=== PATIENT | male | born 1955 | race Asian ===

== ENCOUNTER 2022-04-04 18:01 | Emergency (ER) | payer MEDICAID ==
[~2022-04-04] VITALS: Ht 185.4 cm; Wt 79.5 kg
[2022-04-04 20:10] LABS: COVID AG,FIA SOURCE NASOPHARYNGEAL
[2022-04-04 20:14] LABS: BASOPHILS % (AUTO) 0.1 % (0.0-2.0); EOSINOPHILS % (AUTO) 0 % (1.0-6.0); HEMATOCRIT 26.6 % (41-53); HEMOGLOBIN 7.4 g/dL (13.5-17.5); LYMPHOCYTES # (AUTO) 1.9 K/uL (1.0-4.8); LYMPHOCYTES % (AUTO) 19.5 % (22.0-44.0); MEAN CORPUSCULAR HEMOGLOBIN 15.7 pg (26.0-34.0); MEAN CORPUSCULAR HGB CONC 27.9 G/dL (31.0-37.0); MEAN CORPUSCULAR VOLUME 56 fL (80-100); MONOCYTES # (AUTO) 0.8 K/uL (0.1-1.0); MONOCYTES % (AUTO) 8.3 % (2.0-9.0); NEUTROPHILS # (AUTO) 7.1 K/uL (1.8-7.7); NEUTROPHILS % (AUTO) 72.1 % (40.0-70.0); PLATELET COUNT (AUTO) 448 K/uL (150-450); RED BLOOD CELL COUNT(AUTO) 4.72 MIL/uL (4.50-5.90); RED CELL DISTRIBUTION WIDTH 18.8 % (11.5-14.5)
[2022-04-04 20:19] LABS: ANION GAP 12 mmol/L (8-16); CALCIUM, TOTAL 8.9 mg/dL (8.8-10.5); CARBON DIOXIDE 22 mmol/L (22-29); CHLORIDE 101 mmol/L (98-107); CREATININE 1.12 mg/dL (0.60-1.30); GLOMERULAR FILTR. RATE CALC > 60 mL/min (>60); GLUCOSE,RANDOM 129 mg/dL (70-110); POTASSIUM 3.7 mmol/L (3.5-5.1); SODIUM SERUM 135 mmol/L (136-145); UREA NITROGEN, BLOOD 15 mg/dL (7-18)
[2022-04-04 20:24] LABS: ALANINE AMINOTRANSFERASE 22 U/L (12-78); ALBUMIN 4.1 g/dL (3.4-5.0); ALKALINE PHOSPHATASE 88 U/L (46-116); ASPARTATE AMINOTRANSFERASE 17 U/L (15-37); BILIRUBIN,TOTAL 0.4 mg/dL (0.1-1.0); LIPASE 229 U/L (73-393); TOTAL PROTEIN, SERUM 9.2 g/dL (6.4-8.2)
[2022-04-04 20:34] LABS: INFLUENZA TYPE A NEGATIVE FOR TYPE A (NEGATIVE); INFLUENZA TYPE B NEGATIVE FOR TYPE B (NEGATIVE)
[2022-04-04] MEDS ORDERED: LIDOCAINE 2% VISCOUS 15 ML SOLUTION UDCUP PO ONE (20:45)
[2022-04-04] MEDS ORDERED: MAG HYDROX/AL HYDROX/SIMETH ES 30 ML SUSPENSION UDCUP PO ONE (20:45)
[2022-04-04] MEDS ORDERED: OMEP20 PO (21:12)
[2022-04-04] MEDS: OMEPRAZOLE 20 MG CAPSULE PO ONE (21:20)
[2022-04-04 21:30] VITALS: BP 119/74
== END 2022-04-04 23:08 | disposition home or self-care (01) ==
LOC: EMS 18:01
DX: R10.13 Epigastric pain (principal); D64.9 Anemia, unspecified; Z20.822 Contact with and (suspected) exposure to COVID-19
CPT/HCPCS: 71045; 80053; 83690; 84484; 85025; 87804; 93005; 99285; 36415-L1; 36415-TC

== ENCOUNTER 2022-04-21 15:33 | Emergency (ER) | payer MEDICAID ==
[~2022-04-21] VITALS: Ht 185.4 cm; Wt 73.2 kg
[~2022-04-21 15:33] MED LIST: AMOX1TAB16 PO; DOCU-385 PO; HYDR4 PO; OMEP20 PO
[2022-04-21] MEDS ORDERED: HYDROGEN PEROXIDE 118 ML SOLUTION TP ONE (16:15)
[2022-04-21 16:29] VITALS: BP 123/53
== END 2022-04-21 16:35 | disposition home or self-care (01) ==
LOC: EMS 15:34
DX: Z48.01 Encounter for change or removal of surgical wound dressing (principal); Z90.49 Acquired absence of other specified parts of digestive tract
CPT/HCPCS: 99282; Z7502; Z7610

== ENCOUNTER 2022-06-18 19:19 | Emergency (ER) | payer MEDICAID ==
[~2022-06-18] VITALS: Ht 180.3 cm; Wt 69.1 kg
[2022-06-18 23:09] LABS: BASOPHILS % (AUTO) 0.5 % (0.0-2.0); HEMATOCRIT 43.8 % (41-53); HEMOGLOBIN 14.3 g/dL (13.5-17.5); LYMPHOCYTES # (AUTO) 1.6 K/uL (1.0-4.8); LYMPHOCYTES % (AUTO) 44.7 % (22.0-44.0); MEAN CORPUSCULAR HEMOGLOBIN 27.2 pg (26.0-34.0); MEAN CORPUSCULAR HGB CONC 32.6 G/dL (31.0-37.0); MEAN CORPUSCULAR VOLUME 84 fL (80-100); MONOCYTES # (AUTO) 0.4 K/uL (0.1-1.0); MONOCYTES % (AUTO) 11.2 % (2.0-9.0); NEUTROPHILS # (AUTO) 1.4 K/uL (1.8-7.7); NEUTROPHILS % (AUTO) 39.6 % (40.0-70.0); PLATELET COUNT (AUTO) 183 K/uL (150-450); RED BLOOD CELL COUNT(AUTO) 5.24 MIL/uL (4.50-5.90); RED CELL DISTRIBUTION WIDTH 19.4 % (11.5-14.5)
[2022-06-18 23:24] LABS: ANION GAP 9 mmol/L (8-16); CALCIUM, TOTAL 8.7 mg/dL (8.8-10.5); CARBON DIOXIDE 26 mmol/L (22-29); CHLORIDE 105 mmol/L (98-107); CREATININE 1.07 mg/dL (0.60-1.30); GLUCOSE,RANDOM 137 mg/dL (70-110); POTASSIUM 3.6 mmol/L (3.5-5.1); SODIUM SERUM 140 mmol/L (136-145); UREA NITROGEN, BLOOD 17 mg/dL (7-18)
[2022-06-18 23:28] LABS: GLOMERULAR FILTR. RATE CALC > 60 mL/min (>60)
[2022-06-18 23:30] LABS: ALANINE AMINOTRANSFERASE 21 U/L (12-78); ALBUMIN 3.6 g/dL (3.4-5.0); ALKALINE PHOSPHATASE 79 U/L (46-116); ASPARTATE AMINOTRANSFERASE 19 U/L (15-37); BILIRUBIN,TOTAL 0.2 mg/dL (0.1-1.0); TOTAL PROTEIN, SERUM 7.5 g/dL (6.4-8.2)
[2022-06-19] MEDS ORDERED: SODIUM CHLORIDE 0.9% 1,000 ML IV ONE (01:00)
[2022-06-19] MEDS ORDERED: MECL-160 PO (02:59)
[2022-06-19 03:00] VITALS: BP 145/90
== END 2022-06-19 03:14 | disposition home or self-care (01) ==
LOC: EMS 19:22
DX: R42 Dizziness and giddiness (principal)
CPT/HCPCS: 99285; 80053; 85025; 36415; 93005; 70450; J7030

== ENCOUNTER 2022-09-01 06:07 | Day surgery (SDC) | payer OTHER ==
[~2022-09-01] VITALS: Ht 182.9 cm; Wt 75.0 kg
[~2022-09-01 06:07] MED LIST changes: -AMOX1TAB16 PO; -DOCU-385 PO; -HYDR4 PO; +MECL-160 PO; -OMEP20 PO; +SODIUM CHLORIDE 0.9% 1,000 ML IV ONE; +SODIUM CHLORIDE 0.9% 1,000 ML ONE
[2022-09-01 06:55] LABS: COVID AG,FIA SOURCE NASAL SWAB
[2022-09-01] MEDS ORDERED: PROPOFOL 1% 20 ML VIAL IVP ONE (12:00)
[2022-09-01] MEDS ORDERED: LIDOCAINE/PF 2% 5 ML VIAL IM ONE (12:00)
== END 2022-09-01 08:50 | disposition home or self-care (01) ==
LOC: SURGERY 06:07
PROVIDERS: ATTEND Surgery
DX: Z08 Encounter for follow-up examination after completed treatment for malignant neoplasm (principal); K63.5 Polyp of colon; J45.909 Unspecified asthma, uncomplicated; Z85.048 Personal history of other malignant neoplasm of rectum, rectosigmoid junction, and anus; Z20.822 Contact with and (suspected) exposure to COVID-19; Z79.899 Other long term (current) drug therapy; Z98.890 Other specified postprocedural states
CPT/HCPCS: 45380; 87426; C9803; C1769; J2704; J3490; J7030

== ENCOUNTER 2022-12-02 18:22 | Emergency (ER) | payer OTHER ==
[~2022-12-02] VITALS: Ht 185.4 cm; Wt 75.0 kg
[~2022-12-02 18:22] MED LIST changes: -SODIUM CHLORIDE 0.9% 1,000 ML IV ONE; -SODIUM CHLORIDE 0.9% 1,000 ML ONE
[2022-12-02 21:00] VITALS: BP 132/85
[2022-12-02 21:46] LABS: BASOPHILS % (AUTO) 0.9 % (0.0-2.0); EOSINOPHILS % (AUTO) 0.3 % (1.0-6.0); HEMATOCRIT 48.7 % (41-53); HEMOGLOBIN 15.8 g/dL (13.5-17.5); LYMPHOCYTES # (AUTO) 1.8 K/uL (1.0-4.8); LYMPHOCYTES % (AUTO) 13.3 % (22.0-44.0); MEAN CORPUSCULAR HEMOGLOBIN 28.1 pg (26.0-34.0); MEAN CORPUSCULAR HGB CONC 32.3 G/dL (31.0-37.0); MEAN CORPUSCULAR VOLUME 87 fL (80-100); MONOCYTES # (AUTO) 1.5 K/uL (0.1-1.0); MONOCYTES % (AUTO) 10.8 % (2.0-9.0); NEUTROPHILS # (AUTO) 10.3 K/uL (1.8-7.7); NEUTROPHILS % (AUTO) 74.7 % (40.0-70.0); PLATELET COUNT (AUTO) 286 K/uL (150-450); RED BLOOD CELL COUNT(AUTO) 5.61 MIL/uL (4.50-5.90); RED CELL DISTRIBUTION WIDTH 13.9 % (11.5-14.5)
[2022-12-02 21:53] LABS: CALCIUM, TOTAL 9.2 mg/dL (8.8-10.5); CREATININE 1.28 mg/dL (0.60-1.30); POTASSIUM 3.7 mmol/L (3.5-5.1)
[2022-12-02 22:09] LABS: COVID AG,FIA SOURCE NASAL SWAB
[2022-12-02 22:19] LABS: ALBUMIN 3.9 g/dL (3.4-5.0); BILIRUBIN,TOTAL 0.4 mg/dL (0.1-1.0)
== END 2022-12-02 23:00 | disposition home or self-care (01) ==
LOC: EMS 18:24
DX: J20.9 Acute bronchitis, unspecified (principal); A49.02 Methicillin resistant Staphylococcus aureus infection, unspecified site; J18.9 Pneumonia, unspecified organism; J43.9 Emphysema, unspecified; Z90.49 Acquired absence of other specified parts of digestive tract; Z20.822 Contact with and (suspected) exposure to COVID-19
CPT/HCPCS: 71045; 80053; 82550; 83880; 84484; 85025; 93005; 99285; 36415-L1; 36415-TC

== ENCOUNTER 2023-03-29 05:16 | Inpatient (IN) | payer OTHER ==
[~2023-03-29] VITALS: Ht 185.4 cm; Wt 79.8 kg
[2023-03-29] MEDS ORDERED: BARIUM SULFATE 0.1% SUSPENSION 450 ML BOTTLE PO ONE (06:30)
[2023-03-29] MEDS ORDERED: MORPHINE SULFATE 4 MG/ML SYRINGE IVP ONE ×2 (06:30→08:00)
[2023-03-29] MEDS ORDERED: ONDANSETRON HCL 4 MG/2 ML VIAL IVP ONE (06:30)
[2023-03-29 06:45] LABS: BASOPHILS % (AUTO) 0.5 % (0.0-2.0); EOSINOPHILS % (AUTO) 1.4 % (1.0-6.0); HEMATOCRIT 46.4 % (41-53); HEMOGLOBIN 15.5 g/dL (13.5-17.5); LYMPHOCYTES # (AUTO) 2.8 K/uL (1.0-4.8); LYMPHOCYTES % (AUTO) 30.5 % (22.0-44.0); MEAN CORPUSCULAR HEMOGLOBIN 29.4 pg (26.0-34.0); MEAN CORPUSCULAR HGB CONC 33.5 G/dL (31.0-37.0); MEAN CORPUSCULAR VOLUME 88 fL (80-100); MONOCYTES # (AUTO) 0.5 K/uL (0.1-1.0); MONOCYTES % (AUTO) 5.9 % (2.0-9.0); NEUTROPHILS # (AUTO) 5.7 K/uL (1.8-7.7); NEUTROPHILS % (AUTO) 61.7 % (40.0-70.0); PLATELET COUNT (AUTO) 197 K/uL (150-450); RED BLOOD CELL COUNT(AUTO) 5.27 MIL/uL (4.50-5.90); RED CELL DISTRIBUTION WIDTH 14.1 % (11.5-14.5)
[2023-03-29 06:53] LABS: CALCIUM, TOTAL 8.3 mg/dL (8.8-10.5); CREATININE 1.21 mg/dL (0.60-1.30); POTASSIUM 3.4 mmol/L (3.5-5.1)
[2023-03-29] MEDS ORDERED: IOHEXOL 350 MG/ML 100 ML VIAL ONE (06:56)
[2023-03-29] MEDS ORDERED: SODIUM CHLORIDE 0.9% 100 ML ONE (06:56)
[2023-03-29 07:02] LABS: ALBUMIN 3.7 g/dL (3.4-5.0); BILIRUBIN,TOTAL 0.3 mg/dL (0.1-1.0); TOTAL PROTEIN, SERUM 7.8 g/dL (6.4-8.2)
[2023-03-29] MEDS ORDERED: KETOROLAC TROMETHAMINE 30 MG/ML VIAL IVP ONE (09:15)
[2023-03-29 09:20] LABS: APPEARANCE,URINE CLEAR (CLEAR); BILIRUBIN,URINE NEGATIVE (NEGATIVE); GLUCOSE, URINE (UA) 300-500 mg/dL (NEGATIVE); KETONES,URINE NEGATIVE (NEGATIVE); LEUKOCYTE ESTERASE ,URINE NEGATIVE (NEGATIVE); NITRATE,URINE NEGATIVE (NEGATIVE); OCCULT BLOOD,URINE NEGATIVE (NEGATIVE); PROTEIN,URINE NEGATIVE (NEGATIVE); UROBILINOGEN,URINE <=1.0 mg/dL (<=1.0)
[2023-03-29 09:46] LABS: BACTERIA,URINE None Seen /HPF (None Seen); RBC,URINE None Seen /HPF (0-2); SQUAMOUS EPITHELIAL CELL,UR Few /LPF (None Seen); WBC,URINE None Seen /HPF (0-5)
[2023-03-29] MEDS ORDERED: HYDROmorphone HCL 2 MG/ML SYRINGE IVP ONE (10:15)
[2023-03-29] MEDS ORDERED: ONDANSETRON HCL 4 MG/2 ML VIAL IVP PRN (10:30)
[2023-03-29] MEDS ORDERED: IPRATROPIUM BROMIDE 0.5 MG/2.5 ML NEB SOLUTION NEB PRN (10:30)
[2023-03-29] MEDS ORDERED: 0.9% SODIUM CHLORIDE 10 ML SYRINGE IVP PRN (10:30)
[2023-03-29] MEDS ORDERED: ALBUTEROL SULFATE 2.5 MG/0.5 ML NEB SOLUTION NEB PRN (10:30)
[2023-03-29] MEDS ORDERED: ACETAMINOPHEN 325 MG TABLET PO PRN (10:30)
[2023-03-29] MEDS: SODIUM CHLORIDE 0.9% 1,000 ML IV SCH ×2 (10:54→23:57)
[2023-03-29 12:31] VITALS: BP 126/79
[2023-03-29] MEDS: HYDROmorphone HCL 2 MG/ML SYRINGE IVP PRN ×3 (14:25→22:07)
[2023-03-29] MEDS: HEPARIN SODIUM,PORCINE 5,000 UNITS/ML VIAL SQ SCH ×2 (16:00→23:58)
[2023-03-29 16:31] VITALS: BP 130/80
[2023-03-29] MEDS ORDERED: KETOROLAC TROMETHAMINE 15 MG/ML VIAL IVP ONE (18:00)
[2023-03-29 20:05] VITALS: BP 148/99
[2023-03-30] MEDS ORDERED: HYDROmorphone HCL 2 MG/ML SYRINGE IVP ONE (01:00)
[2023-03-30 05:22] VITALS: BP 121/73
[2023-03-30] MEDS: HYDROmorphone HCL 2 MG/ML SYRINGE IVP PRN ×3 (05:30→17:01)
[2023-03-30 08:00] VITALS: BP 102/58
[2023-03-30] MEDS: HEPARIN SODIUM,PORCINE 5,000 UNITS/ML VIAL SQ SCH ×2 (08:00→16:00)
[2023-03-30] MEDS: PANTOPRAZOLE SODIUM 40 MG/VIAL IVP SCH (08:40)
[2023-03-30] MEDS ORDERED: DIATRIZOATE MEGLU/SOD 660/100 MG/ML 120 ML BOTTLE ONE ×2 (10:00→16:44)
[2023-03-30] MEDS: SODIUM CHLORIDE 0.9% 1,000 ML IV SCH (13:07)
[2023-03-30 15:00] VITALS: BP 106/76
[2023-03-30 19:50] VITALS: BP 136/71
[2023-03-30] MEDS ORDERED: RINGERS SOLUTION,LACTATED 1,000 ML IV SCH (21:45)
[2023-03-30 22:00] VITALS: BP 98/55
[2023-03-30] MEDS ORDERED: RINGERS SOLUTION,LACTATED 1,000 ML IV ONE (22:00)
[2023-03-30] MEDS ORDERED: SODIUM CHLORIDE 0.9% 1,000 ML ONE ×2 (22:01→22:11)
[2023-03-30] MEDS ORDERED: POTASSIUM CHL 10 MEQ/WATER 50 ML IV ONE (22:15)
[2023-03-30 22:35] LABS: BASOPHILS % (AUTO) 0.1 % (0.0-2.0); EOSINOPHILS % (AUTO) 0 % (1.0-6.0); HEMATOCRIT 39.6 % (41-53); HEMOGLOBIN 12.3 g/dL (13.5-17.5); LYMPHOCYTES # (AUTO) 1.6 K/uL (1.0-4.8); LYMPHOCYTES % (AUTO) 10.8 % (22.0-44.0); MEAN CORPUSCULAR HEMOGLOBIN 28.7 pg (26.0-34.0); MEAN CORPUSCULAR VOLUME 93 fL (80-100); MONOCYTES # (AUTO) 2.6 K/uL (0.1-1.0); MONOCYTES % (AUTO) 17.6 % (2.0-9.0); NEUTROPHILS # (AUTO) 10.7 K/uL (1.8-7.7); NEUTROPHILS % (AUTO) 71.5 % (40.0-70.0); PLATELET COUNT (AUTO) 151 K/uL (150-450); RED BLOOD CELL COUNT(AUTO) 4.28 MIL/uL (4.50-5.90); RED CELL DISTRIBUTION WIDTH 14.8 % (11.5-14.5)
[2023-03-30 22:57] LABS: ALBUMIN 1.5 g/dL (3.4-5.0); BILIRUBIN,TOTAL 0.3 mg/dL (0.1-1.0); CREATININE 2.73 mg/dL (0.60-1.30); MAGNESIUM 1.7 mg/dL (1.80-2.40); PHOSPHORUS 6.1 mg/dL (2.5-4.9); TOTAL PROTEIN, SERUM 3.6 g/dL (6.4-8.2)
[2023-03-30] MEDS ORDERED: PIPERACILLIN/TAZO 3.375 GM/D5W 50 ML IV SCH (23:00)
[2023-03-30] MEDS ORDERED: DEXTROSE 50%-WATER 25 GM/50 ML SYRINGE IVP PRN (23:00)
[2023-03-30] MEDS ORDERED: INSULIN LISPRO 100 UNITS/ML SQ PRN (23:00)
[2023-03-30 23:03] LABS: POTASSIUM 2.6 mmol/L (3.5-5.1)
[2023-03-30 23:04] LABS: LACTIC ACID 9.8 mmol/L (0.4-2.0)
[2023-03-30] MEDS ORDERED: MAGNESIUM SULFATE 2 GM/WATER 50 ML IV ONE (23:15)
[2023-03-30] MEDS ORDERED: SODIUM CHLORIDE 0.9% 250 ML IV ONE (23:18)
[2023-03-30 23:32] LABS: % IRON SATURATION 13.9 % (30-44)
[2023-03-30] MEDS: PROPOFOL 1000 MG/ISO-OSM 100 ML IV PRN (23:41)
[2023-03-30] MEDS: SODIUM CHLORIDE 0.45% 1,000 ML IV SCH (23:44)
[2023-03-31] VITALS (7 sets, daily range): BP systolic 82–128; BP diastolic 42–66
[2023-03-31 00:12] LABS: SITE, BLOOD GAS RT FEMORAL
[2023-03-31 00:13] LABS: SOURCE, BLOOD GAS ARTERIAL; TEMPERATURE, FAHRENHEIT, BG 97.8 FAHREN (96.0-98.6)
[2023-03-31 00:14] LABS: ABG PCO2 46 mmHg (35-45); ABG PH 7.156 (7.35-7.450); PO2, ARTERIAL BG 373.2 mmHg (79.0-87.0)
[2023-03-31 00:15] LABS: ABG BASE EXCESS 12.9 mmol/L (-2.0-3.0); ABG CARBOXYHEMOGLOBIN 0.3 % (0.0-1.5); ABG HCO3 14.8 mmol/L (22.0-26.0); ABG METHEMOGLOBIN 0.3 % (0.0-1.5); ABG OXYHEMOGLOBIN 98.3 % (94.0-100.0); ABG TOTAL HEMOGLOBIN 15.6 G/dL (12.0-18.0)
[2023-03-31 00:16] LABS: ABG OXYGEN CONTENT 22.5 mL/dL (15.0-23.0); ABG OXYGEN SATURATION 98.9 % (95.0-98.0); O2 DEVICE,BLOOD GAS VENT (ROOM AIR); PEEP,BG 5 cm H2O; VT, ABG 450 ml
[2023-03-31 01:06] LABS: GLUCOMETER DEV NAME(LOC) 6N.1; GLUCOSE,POINT OF CARE 146 MG/DL (70-110)
[2023-03-31] MEDS: POTASSIUM CHL 10 MEQ/WATER 50 ML IV SCH ×2 (01:29→03:27)
[2023-03-31] MEDS: PROPOFOL 1000 MG/ISO-OSM 100 ML IV PRN ×3 (03:56→22:37)
[2023-03-31] MEDS: FentaNYL CIT 1000MCG/0.9% NACL 100 ML IV PRN ×3 (04:48→22:38)
[2023-03-31 05:24] LABS: ABG BASE EXCESS -15.9 mmol/L (-2.0-3.0); ABG CARBOXYHEMOGLOBIN 0.2 % (0.0-1.5); ABG HCO3 13.8 mmol/L (22.0-26.0); ABG METHEMOGLOBIN 0.3 % (0.0-1.5); ABG OXYGEN CONTENT 22.6 mL/dL (15.0-23.0); ABG OXYGEN SATURATION 98.5 % (95.0-98.0); ABG PCO2 25 mmHg (35-45); ABG TOTAL HEMOGLOBIN 16.2 G/dL (12.0-18.0); PO2, ARTERIAL BG 161.8 mmHg (79.0-87.0); SITE, BLOOD GAS LFT RADIAL; SOURCE, BLOOD GAS ARTERIAL; TEMPERATURE, FAHRENHEIT, BG 90.7 FAHREN (96.0-98.6)
[2023-03-31 05:25] LABS: ABG A-A DIFF O2 390.3 mmHg (10-20.0); O2 DEVICE,BLOOD GAS VENT (ROOM AIR); PEEP,BG 5 cm H2O; VT, ABG 450 ml
[2023-03-31] MEDS ORDERED: LORazepam 2 MG/ML VIAL IVP ONE (06:00)
[2023-03-31] MEDS ORDERED: MIDAZOLAM HCL 100 MG in SODIUM CHLORIDE 0.9% 180 ML IV PRN (06:00)
[2023-03-31 06:36] LABS: GLUCOSE,POINT OF CARE 117 MG/DL (70-110)
[2023-03-31] MEDS: NOREPINEPHRINE 8 MG/D5%-WATER 250 ML IV PRN ×2 (06:56→19:26)
[2023-03-31] MEDS: HEPARIN SODIUM,PORCINE 5,000 UNITS/ML VIAL SQ SCH ×4 (08:00→23:20)
[2023-03-31] MEDS: PANTOPRAZOLE SODIUM 40 MG/VIAL IVP SCH (08:33)
[2023-03-31] MEDS: SODIUM CHLORIDE 0.45% 1,000 ML IV SCH ×2 (08:40→21:33)
[2023-03-31] MEDS ORDERED: FAMOTIDINE 10 MG/ML 2 ML VIAL IVP SCH (09:00)
[2023-03-31] MEDS: CHLORHEXIDINE GLUCONATE 0.12% 15 ML UDCUP ORAL RINSE MM SCH ×2 (09:00→21:32)
[2023-03-31 09:06] LABS: HEMOGLOBIN 15.5 g/dL (13.5-17.5); MEAN CORPUSCULAR HEMOGLOBIN 29.6 pg (26.0-34.0); MEAN CORPUSCULAR HGB CONC 32.9 G/dL (31.0-37.0); MEAN CORPUSCULAR VOLUME 90 fL (80-100); PLATELET COUNT (AUTO) 155 K/uL (150-450); RED BLOOD CELL COUNT(AUTO) 5.23 MIL/uL (4.50-5.90); RED CELL DISTRIBUTION WIDTH 14.4 % (11.5-14.5)
[2023-03-31 09:12] LABS: HEMOGLOBIN A1C 5.6 % (3.8-5.6)
[2023-03-31 09:18] LABS: ALANINE AMINOTRANSFERASE 136 U/L (12-78); ALBUMIN 2.9 g/dL (3.4-5.0); ALKALINE PHOSPHATASE 52 U/L (46-116); ANION GAP 20 mmol/L (8-16); ASPARTATE AMINOTRANSFERASE 198 U/L (15-37); BILIRUBIN,TOTAL 0.6 mg/dL (0.1-1.0); CALCIUM, TOTAL 7.3 mg/dL (8.8-10.5); CARBON DIOXIDE 19 mmol/L (22-29); CHLORIDE 104 mmol/L (98-107); CREATININE 5.56 mg/dL (0.60-1.30); GLOMERULAR FILTR. RATE CALC 10 mL/min (>60); GLUCOSE,RANDOM 139 mg/dL (70-110); PHOSPHORUS 6.7 mg/dL (2.5-4.9); POTASSIUM 4.6 mmol/L (3.5-5.1); SODIUM SERUM 143 mmol/L (136-145); TOTAL PROTEIN, SERUM 6.9 g/dL (6.4-8.2); UREA NITROGEN, BLOOD 61 mg/dL (7-18)
[2023-03-31 09:23] LABS: LACTIC ACID 7.5 mmol/L (0.4-2.0)
[2023-03-31 09:36] LABS: BAND NEUTROPHILS % (MANUAL) 20 % (0-5); LYMPHOCYTES % (MANUAL) 27 % (22-44); MONOCYTES % (MANUAL) 1 % (2-9); SEGMENTED NEUTROPHILS % 52 % (40-70)
[2023-03-31] MEDS ORDERED: PIPERACILLIN SODIUM/TAZOBACTAM 2.25 GM in DEXTROSE 5%-WATER 50 ML IV SCH (10:00)
[2023-03-31 12:13] LABS: ABG A-A DIFF O2 492.6 mmHg (10-20.0); ABG BASE EXCESS -10.4 mmol/L (-2.0-3.0); ABG CARBOXYHEMOGLOBIN 1.2 % (0.0-1.5); ABG HCO3 16.3 mmol/L (22.0-26.0); ABG METHEMOGLOBIN 0.3 % (0.0-1.5); ABG OXYGEN CONTENT 18.3 mL/dL (15.0-23.0); ABG OXYHEMOGLOBIN 84.7 % (94.0-100.0); ABG PCO2 39 mmHg (35-45); ABG PH 7.251 (7.35-7.450); ABG TOTAL HEMOGLOBIN 15.4 G/dL (12.0-18.0); O2 DEVICE,BLOOD GAS VENTILATOR (ROOM AIR); PEEP,BG 5 cm H2O; PO2, ARTERIAL BG 43.8 mmHg (79.0-87.0); SITE, BLOOD GAS RT BRACHIAL; SOURCE, BLOOD GAS ARTERIAL; TEMPERATURE, FAHRENHEIT, BG 91.8 FAHREN (96.0-98.6); VT, ABG 450 ml
[2023-03-31 12:15] LABS: CREATINE KINASE, TOTAL ONLY 2180 U/L (39-308)
[2023-03-31 12:36] LABS: GLUCOSE,POINT OF CARE 101 MG/DL (70-110)
[2023-03-31 16:15] LABS: HEMATOCRIT 43.9 % (41-53); HEMOGLOBIN 14.2 g/dL (13.5-17.5)
[2023-03-31 17:14] LABS: CREATININE 6.09 mg/dL (0.60-1.30); POTASSIUM 4.5 mmol/L (3.5-5.1)
[2023-03-31 17:15] LABS: ALBUMIN 2.5 g/dL (3.4-5.0); BILIRUBIN,TOTAL 0.5 mg/dL (0.1-1.0); CALCIUM, TOTAL 7.1 mg/dL (8.8-10.5); MAGNESIUM 2.8 mg/dL (1.80-2.40); PHOSPHORUS 6.5 mg/dL (2.5-4.9); TOTAL PROTEIN, SERUM 6.2 g/dL (6.4-8.2)
[2023-03-31 18:35] LABS: ABG BASE EXCESS -12.4 mmol/L (-2.0-3.0); ABG CARBOXYHEMOGLOBIN 0.5 % (0.0-1.5); ABG METHEMOGLOBIN 0.1 % (0.0-1.5); ABG OXYGEN CONTENT 19.7 mL/dL (15.0-23.0); ABG OXYGEN SATURATION 97.3 % (95.0-98.0); ABG OXYHEMOGLOBIN 96.7 % (94.0-100.0); ABG PCO2 47 mmHg (35-45); ABG TOTAL HEMOGLOBIN 14.4 G/dL (12.0-18.0); PO2, ARTERIAL BG 124.8 mmHg (79.0-87.0); SOURCE, BLOOD GAS ARTERIAL; TEMPERATURE, FAHRENHEIT, BG 98.4 FAHREN (96.0-98.6)
[2023-03-31 18:52] LABS: ABG A-A DIFF O2 541.2 mmHg (10-20.0); ABG PH 7.156 (7.35-7.450); SITE, BLOOD GAS ARTERIAL LINE
[2023-03-31 18:53] LABS: O2 DEVICE,BLOOD GAS VENT (ROOM AIR); PEEP,BG 8 cm H2O; VT, ABG 450 ml
[2023-03-31] MEDS ORDERED: SODIUM BICARBONATE [ADULT] 8.4% 50 MEQ/50 ML SYRINGE IVP ONE (19:00)
[2023-03-31] MEDS: PHENYLEPHRINE 200 MG/D5%-WATER 250 ML IV PRN (19:26)
[2023-03-31] MEDS ORDERED: SODIUM CHLORIDE 0.9% 2,000 ML ONE (20:45)
[2023-03-31 20:55] LABS: HEMATOCRIT 40.2 % (41-53)
[2023-03-31 21:23] LABS: ALBUMIN 2.2 g/dL (3.4-5.0); BILIRUBIN,TOTAL 0.6 mg/dL (0.1-1.0); CREATININE 6.47 mg/dL (0.60-1.30); MAGNESIUM 2.8 mg/dL (1.80-2.40); PHOSPHORUS 7.2 mg/dL (2.5-4.9); POTASSIUM 4.3 mmol/L (3.5-5.1); TOTAL PROTEIN, SERUM 5.5 g/dL (6.4-8.2)
[2023-03-31 22:55] LABS: ALBUMIN 2.2 g/dL (3.4-5.0); BILIRUBIN,TOTAL 0.7 mg/dL (0.1-1.0); CALCIUM, TOTAL 6.8 mg/dL (8.8-10.5); CREATININE 6.59 mg/dL (0.60-1.30); MAGNESIUM 2.7 mg/dL (1.80-2.40); PHOSPHORUS 7.5 mg/dL (2.5-4.9); POTASSIUM 4.2 mmol/L (3.5-5.1); TOTAL PROTEIN, SERUM 5.6 g/dL (6.4-8.2)
[2023-03-31] MEDS ORDERED: SODIUM CHLORIDE 0.9% 1,000 ML IV ONE (23:00)
[2023-03-31] MEDS ORDERED: VASOPRESSIN 40 UNITS in DEXTROSE 5%-WATER 98 ML IV PRN (23:00)
[2023-03-31 23:11] LABS: GLUCOSE,POINT OF CARE 104 MG/DL (70-110)
[2023-03-31 23:11] LABS: GLUCOSE,POINT OF CARE 97 MG/DL (70-110)
[2023-03-31 23:55] LABS: ABG BASE EXCESS -16.6 mmol/L (-2.0-3.0); ABG CARBOXYHEMOGLOBIN 0.1 % (0.0-1.5); ABG HCO3 12.2 mmol/L (22.0-26.0); ABG METHEMOGLOBIN 0.3 % (0.0-1.5); ABG OXYGEN CONTENT 18.3 mL/dL (15.0-23.0); ABG OXYGEN SATURATION 97.9 % (95.0-98.0); ABG OXYHEMOGLOBIN 97.5 % (94.0-100.0); ABG PCO2 44 mmHg (35-45); ABG TOTAL HEMOGLOBIN 13.1 G/dL (12.0-18.0); PO2, ARTERIAL BG 138.6 mmHg (79.0-87.0); SOURCE, BLOOD GAS ARTERIAL; TEMPERATURE, FAHRENHEIT, BG 92.2 FAHREN (96.0-98.6)
[2023-04-01] VITALS: BP 127/50
[2023-04-01 00:03] LABS: ABG A-A DIFF O2 539.4 mmHg (10-20.0); ABG PH 7.097 (7.35-7.450); O2 DEVICE,BLOOD GAS VENT (ROOM AIR); SITE, BLOOD GAS ARTERIAL LINE; VT, ABG 450 ml
[2023-04-01 00:04] LABS: PEEP,BG 8 cm H2O
[2023-04-01] MEDS ORDERED: SODIUM BICARBONATE [ADULT] 8.4% 50 MEQ/50 ML SYRINGE IVP ONE ×5 (00:30→13:45)
[2023-04-01] MEDS ORDERED: SODIUM BICARBONATE 150 MEQ in DEXTROSE 5%-WATER 1,000 ML IV SCH (00:30)
[2023-04-01] MEDS: DOPamine 800MG/D5W[DOUBLE] 250 ML IV PRN ×2 (02:13→11:22)
[2023-04-01] MEDS: NOREPINEPHRINE 8 MG/D5%-WATER 250 ML IV PRN ×2 (02:29→08:36)
[2023-04-01] MEDS: POTASSIUM CHLORIDE 20 MEQ in NXSTAGE RFP-402 K0/CA3 5,000 ML IRRIG PRN ×2 (03:46→04:14)
[2023-04-01 04:00] VITALS: BP 98/39
[2023-04-01] MEDS ORDERED: HEPARIN SODIUM,PORCINE 1,000 UNITS/ML VIAL IVCATH PRN ×2 (04:45→05:00)
[2023-04-01 04:59] LABS: ABG BASE EXCESS -21.6 mmol/L (-2.0-3.0); ABG CARBOXYHEMOGLOBIN 0.2 % (0.0-1.5); ABG METHEMOGLOBIN 0.3 % (0.0-1.5); ABG OXYGEN CONTENT 15.2 mL/dL (15.0-23.0); ABG OXYGEN SATURATION 97.1 % (95.0-98.0); ABG OXYHEMOGLOBIN 96.6 % (94.0-100.0); ABG PCO2 44 mmHg (35-45); PO2, ARTERIAL BG 123.6 mmHg (79.0-87.0); SOURCE, BLOOD GAS ARTERIAL; TEMPERATURE, FAHRENHEIT, BG 92.3 FAHREN (96.0-98.6)
[2023-04-01 05:05] LABS: ABG A-A DIFF O2 407.6 mmHg (10-20.0); O2 DEVICE,BLOOD GAS VENT (ROOM AIR); PEEP,BG 8 cm H2O; SITE, BLOOD GAS ARTERIAL LINE; VT, ABG 450 ml
[2023-04-01] MEDS ORDERED: SODIUM CHLORIDE 0.9% 500 ML IV ONE ×2 (05:34→12:25)
[2023-04-01 06:56] LABS: GLUCOSE,POINT OF CARE 67 MG/DL (70-110)
[2023-04-01 07:27] LABS: ALBUMIN 1.5 g/dL (3.4-5.0); BILIRUBIN,TOTAL 1.2 mg/dL (0.1-1.0); CALCIUM, TOTAL 6.1 mg/dL (8.8-10.5); CREATININE 5.3 mg/dL (0.60-1.30); MAGNESIUM 2.4 mg/dL (1.80-2.40); POTASSIUM 3.8 mmol/L (3.5-5.1); TOTAL PROTEIN, SERUM 4.2 g/dL (6.4-8.2)
[2023-04-01 07:47] LABS: PHOSPHORUS 9.3 mg/dL (2.5-4.9)
[2023-04-01] MEDS: PANTOPRAZOLE SODIUM 40 MG/VIAL IVP SCH (07:52)
[2023-04-01 07:59] LABS: LACTATE DEHYDROGENASE 571 U/L (85-227)
[2023-04-01 08:00] VITALS: BP 84/35
[2023-04-01] MEDS: HEPARIN SODIUM,PORCINE 5,000 UNITS/ML VIAL SQ SCH (08:00)
[2023-04-01] MEDS ORDERED: PIPERACILLIN/TAZO 3.375 GM/D5W 50 ML IV SCH (08:00)
[2023-04-01 08:11] LABS: HEMATOCRIT 36.7 % (41-53); HEMOGLOBIN 11.7 g/dL (13.5-17.5); MEAN CORPUSCULAR HEMOGLOBIN 29.9 pg (26.0-34.0); MEAN CORPUSCULAR HGB CONC 31.9 G/dL (31.0-37.0); MEAN CORPUSCULAR VOLUME 94 fL (80-100); RED BLOOD CELL COUNT(AUTO) 3.92 MIL/uL (4.50-5.90); RED CELL DISTRIBUTION WIDTH 14.7 % (11.5-14.5)
[2023-04-01 08:17] LABS: PLATELET COUNT (AUTO) 36 K/uL (150-450)
[2023-04-01] MEDS: PHENYLEPHRINE 200 MG/D5%-WATER 250 ML IV PRN (08:22)
[2023-04-01] MEDS: EPINEPHrine 2 MG in DEXTROSE 5%-WATER 248 ML IV PRN ×6 (08:33→13:51)
[2023-04-01] MEDS: CHLORHEXIDINE GLUCONATE 0.12% 15 ML UDCUP ORAL RINSE MM SCH (08:58)
[2023-04-01 09:01] LABS: BAND NEUTROPHILS % (MANUAL) 4 % (0-5); LYMPHOCYTES % (MANUAL) 79 % (22-44); MONOCYTES % (MANUAL) 10 % (2-9); SEGMENTED NEUTROPHILS % 7 % (40-70)
[2023-04-01 09:03] LABS: PATHOLOGY REVIEW, DIFF YES
[2023-04-01 10:31] LABS: ABG BASE EXCESS -13.3 mmol/L (-2.0-3.0); ABG CARBOXYHEMOGLOBIN 0.9 % (0.0-1.5); ABG HCO3 13.1 mmol/L (22.0-26.0); ABG METHEMOGLOBIN 0.3 % (0.0-1.5); ABG OXYGEN CONTENT 9.1 mL/dL (15.0-23.0); ABG OXYHEMOGLOBIN 65.6 % (94.0-100.0); ABG PH 6.931 (7.35-7.450); ABG TOTAL HEMOGLOBIN 9.8 G/dL (12.0-18.0); SOURCE, BLOOD GAS ARTERIAL; TEMPERATURE, FAHRENHEIT, BG 93.8 FAHREN (96.0-98.6)
[2023-04-01 10:32] LABS: ABG A-A DIFF O2 442.4 mmHg (10-20.0); ABG OXYGEN SATURATION 66.4 % (95.0-98.0); ABG PCO2 91 mmHg (35-45); O2 DEVICE,BLOOD GAS VENTILATOR (ROOM AIR); PEEP,BG 8 cm H2O; PO2, ARTERIAL BG 37.9 mmHg (79.0-87.0); SITE, BLOOD GAS ARTERIAL LINE; VT, ABG 450 ml
[2023-04-01 12:00] VITALS: BP 82/44
[2023-04-01 12:01] LABS: ALBUMIN 1.2 g/dL (3.4-5.0); BILIRUBIN,TOTAL 2.2 mg/dL (0.1-1.0); CREATININE 5.87 mg/dL (0.60-1.30); MAGNESIUM 2.9 mg/dL (1.80-2.40); POTASSIUM 5.1 mmol/L (3.5-5.1); TOTAL PROTEIN, SERUM 3.6 g/dL (6.4-8.2)
[2023-04-01 12:11] LABS: PHOSPHORUS 14.4 mg/dL (2.5-4.9)
[2023-04-01] MEDS ORDERED: ALTEPLASE 2 MG VIAL IVCATH ONE (12:45)
[2023-04-01] MEDS ORDERED: SODIUM CHLORIDE 0.9% 1,000 ML IV ONE (13:00)
[2023-04-01 13:15] LABS: GLUCOSE,POINT OF CARE 186 MG/DL (70-110)
[2023-04-01 13:15] LABS: GLUCOSE,POINT OF CARE 130 MG/DL (70-110)
[2023-04-01 13:35] LABS: BILIRUBIN,TOTAL 2.2 mg/dL (0.1-1.0); CREATININE 5.77 mg/dL (0.60-1.30); POTASSIUM 5.5 mmol/L (3.5-5.1); TOTAL PROTEIN, SERUM 3.1 g/dL (6.4-8.2)
[2023-04-01 13:37] LABS: CALCIUM, TOTAL 5.3 mg/dL (8.8-10.5)
[2023-04-01 13:51] VITALS: BP 81/35
== END 2023-04-01 14:21 | DRG 720 ==
LOC: EMS 05:17 → 6S 10:57 → ICU 03-30 21:43
PROVIDERS: ADMIT Internal Medicine; ATTEND Internal Medicine
PROC: 0D9670Z Drainage of Stomach with Drainage Device, Via Natural or Artificial Opening (ICD-10-PCS; principal; 2023-03-29)
PROC: 5A12012 Performance of Cardiac Output, Single, Manual (ICD-10-PCS; 2023-03-30)
PROC: 5A1945Z Respiratory Ventilation, 24-96 Consecutive Hours (ICD-10-PCS; 2023-03-30)
PROC: 0BH17EZ Insertion of Endotracheal Airway into Trachea, Via Natural or Artificial Opening (ICD-10-PCS; 2023-03-30)
PROC: 04HY32Z Insertion of Monitoring Device into Lower Artery, Percutaneous Approach (ICD-10-PCS; 2023-03-31)
PROC: 4A133B1 Monitoring of Arterial Pressure, Peripheral, Percutaneous Approach (ICD-10-PCS; 2023-03-31)
PROC: 4A133J1 Monitoring of Arterial Pulse, Peripheral, Percutaneous Approach (ICD-10-PCS; 2023-03-31)
PROC: 06HY33Z Insertion of Infusion Device into Lower Vein, Percutaneous Approach (ICD-10-PCS; 2023-03-31)
PROC: B54BZZA Ultrasonography of Right Lower Extremity Veins, Guidance (ICD-10-PCS; 2023-03-31)
PROC: 06HY33Z Insertion of Infusion Device into Lower Vein, Percutaneous Approach (ICD-10-PCS; 2023-03-31)
PROC: B54CZZA Ultrasonography of Left Lower Extremity Veins, Guidance (ICD-10-PCS; 2023-03-31)
PROC: 5A12012 Performance of Cardiac Output, Single, Manual (ICD-10-PCS; 2023-04-01)
DX: A41.9 Sepsis, unspecified organism (principal); J96.01 Acute respiratory failure with hypoxia; N17.0 Acute kidney failure with tubular necrosis; I46.9 Cardiac arrest, cause unspecified; J69.0 Pneumonitis due to inhalation of food and vomit; R65.21 Severe sepsis with septic shock; K56.699 Other intestinal obstruction unspecified as to partial versus complete obstruction; E87.1 Hypo-osmolality and hyponatremia; R71.0 Precipitous drop in hematocrit; E87.20 Acidosis, unspecified; I44.0 Atrioventricular block, first degree; I45.10 Unspecified right bundle-branch block; J43.9 Emphysema, unspecified; E86.1 Hypovolemia; E83.42 Hypomagnesemia; E87.6 Hypokalemia; E87.5 Hyperkalemia; K76.0 Fatty (change of) liver, not elsewhere classified; N18.9 Chronic kidney disease, unspecified; E87.0 Hyperosmolality and hypernatremia; I95.9 Hypotension, unspecified; Z85.038 Personal history of other malignant neoplasm of large intestine; Z90.49 Acquired absence of other specified parts of digestive tract
CPT/HCPCS: 36600; 71045; 74018; 74177; 74250; 80053; 81001; 82550; 82805; 82962; 83036; 83540; 83550; 83605; 83615; 83690; 83735; 83930; 84100; 84145; 84484; 85014; 85018; 85025; 85045; 86850; 86900; 86901; 87040; 90947; 92950; 93005; 93308; 94002; 94003; 99291; C9113; G0378; J0171; J1170; J1265; J1644; J1885; J2060; J2250; J2270; J2370; J2405; J2543; J2704; J2997; J3475; J3480; J3490; J7030; J7040; J7050; J7060; Q9967; 36415-L1; 36415-TC